=== PATIENT | male | born 1960 | race Caucasian/White ===

== ENCOUNTER 2020-10-02 06:33 | Day surgery (SDC) | payer SELFPAY ==
[2020-10-01 12:19] LABS: Absolute Lymphocytes (CBC) 1.4 K/uL (0.7-4.9); Basophils % 0.8 % (0-1.3); Hematocrit 43.9 % (39.6-49.0); Lymphocytes % 31.6 % (15.3-44.8); MPV 8.4 fL (7.6-11.3); RBC Red Blood Cell Count 4.35 M/uL (4.33-5.43)
[2020-10-01 12:26] LABS: Protime INR 1.25
[2020-10-01 12:50] LABS: Potassium 4.3 mmol/L (3.5-5.1)
[2020-10-02] MEDS ORDERED: NA CHLORIDE 0.9% 500 ML ONE (07:01)
[2020-10-02] MEDS ORDERED: MIDAZOLAM HCL 10 ML ONE (07:04)
[2020-10-02] MEDS ORDERED: ATROPINE SULF 1 MG/10 ML SYR IV ONE (07:04)
[2020-10-02] MEDS ORDERED: FLUMAZENIL 0.1 MG/ML (5 mL VIAL) IV ONE (07:07)
[2020-10-02 07:24] VITALS: TEMP 97
[2020-10-02] MEDS ORDERED: MIDAZOLAM HCL 2 MG/2 ML INJ ONE ×2 (07:54→08:01)
[2020-10-02 09:02] VITALS: O2SAT 100
[2020-10-02 09:29] VITALS: BP 100/68
--- NOTE | 2020-10-03 16:37 | EKG ---
Test Date: 2020-10-02 Test Time: 06:57:48 [employer]: TASNEEM MEASUREMENT RESULTS: Intervals: Rate: 53 IN: 162 QRSD: 90 QT: 450 QTc: 422 [place]: P: 35 IN: 162 QRS: -5 T: 11 INTERPRETIVE STATEMENTS: Sinus bradycardia Minimal voltage criteria for LVH, may be normal variant Borderline ECG Compared to ECG 08/28/2012 07:22:49 Sinus rhythm no longer present Electronically Signed On 10-03-20 16:33:22 CDT by Justus Natarajan
--- NOTE | 2020-10-05 12:41 | OP ---
Date of Procedure: 10/04/2020 Surgeon: Justus Natarajan MD Direct current cardioversion. Indication: Atrial fibrillation. Procedure In Detail: Mr. Colbert is a 60-year-old white male without any significant past medical hist ory with new onset atrial fibrillation, has been placed on metoprolol 50 b.i.d. and Eliquis and zenon nues to be in atrial fibrillation. He is symptomatic with dizziness and shortness of breath with exe rtion. Procedure In Detail: Brought to the recovery room today as an outpatient. He received a total of 12 mg of Versed IV sedation. He received 1 shock of 200 joules and converted to sinus rhythm. There w ere no complications. No blood loss. Final Diagnosis: Atrial fibrillation, status post successful cardioversion to sinus rhythm. Plan: To switch him from beta blockers, continue his Eliquis, put him on Multaq 400 b.i.d. He can go home today and I will see him in the office in the next 2 weeks. CARMEN/IRIS Voice ID: [id number] Report ID: [id number]
== END 2020-10-02 09:30 | disposition home or self-care (01) ==
LOC: CCL 06:33
PROC: 5A2204Z Restoration of Cardiac Rhythm, Single (ICD-10-PCS; principal; 2020-10-02)
DX: I48.91 Unspecified atrial fibrillation (principal); Z79.01 Long term (current) use of anticoagulants
CPT/HCPCS: 36415; 80048; 85025; 85610; 85730; 92960; 93005; J2250; J7040